=== PATIENT | female | born 1945 ===

== ENCOUNTER 2017-10-30 10:10 | Emergency (ER) | payer MEDICARE ==
[2017-10-30 10:28] VITALS: BP 132/51
--- NOTE | 2017-10-30 10:51 | UC ---
Back Pain HPI - HPI Summary HPI Summary: Pt presents with left rib pain s/p falling 5 days ago. She tells me that 5 days ago she was walking down her steps when it was snowing and slipped on the last step. Landed on her left side and rolled onto her right face/head. No LOC. She got up and went to work as usual. Since that fall she has had left side pain and thinks she may have "broken a rib". She has been taking ibuprofen with significant relief. She does not take any blood thinners, including ASA. Denies dizziness, headache, vision changes, SOB, chest pain, palpitations, abdominal pain, N/V/D/C - History of Current Complaint Chief Complaint: UCTrauma Stated Complaint: S/P FALL LEFT RIB PAIN Time Seen by Provider: 10/30/17 10:25 Hx Obtained From: Patient Onset/Duration: Sudden Onset Timing: Constant Severity Initially: Moderate Severity Currently: Mild Pain Intensity: 1 Pain Scale Used: 0-10 Numeric Character: Sharp, Aching Aggravating Factor(s): Movement, Lifting, Cough Alleviating Factor(s): Rest - Allergies/Home Medications Allergies/Adverse Reactions: Allergies Allergy/AdvReac Type Severity Reaction Status Date / Time Propranolol [From Inderal] Allergy Dizziness Verified 06/02/15 14:50 PMH/Surg Hx/FS Hx/Imm Hx Endocrine History: Diabetes Cardiovascular History: Hypertension - Surgical History Surgical History: Yes Surgery Procedure, Year, and Place: RIGHT mastectomy- 03/16/96 [facility]. BILATERAL KNEE REPLACEMENTS 2003, 2006. C SECTION/APPENDECTOMY. 2012- BILATERAL LENS IMPLANTS- [facility] [place] - Family History Known Family History: Positive: Unknown - Social History Occupation: Employed Part-time Lives: With Family Alcohol Use: None Substance Use Type: None Smoking Status (MU): Former Smoker Type: Cigarettes Have You Smoked in the Last Year: No When Did the Patient Quit Smoking/Using Tobacco: 1992 - Immunization History Most Recent Influenza Vaccination: current for Most Recent Tetanus Shot: 2014 Review of Systems Constitutional: Negative Skin: Negative Eyes: Negative ENT: Negative Respiratory: Negative Cardiovascular: Negative Gastrointestinal: Negative Neurovascular: Negative Musculoskeletal: Other: - Pain left ribs Neurological: Negative Psychological: Negative All Other Systems Reviewed And Are Negative: Yes Physical Exam Triage Information Reviewed: Yes Appearance: Well-Appearing, Obese Vital Signs: Initial Vital Signs Temp 97.8 F 10/30/17 10:23 Pulse 77 10/30/17 10:23 Resp 16 10/30/17 10:23 BP 132/51 10/30/17 10:23 Pulse Ox 97 10/30/17 10:23 Vital Signs Reviewed: Yes Eyes: Positive: Conjunctiva Clear, Other: - EOMI. PERRLA. Area of ecchymosis underneath the right eye - yellow/green in color and appears to be fading.. Negative: Conjunctiva Inflamed, Discharge ENT: Positive: Hearing grossly normal, Pharynx normal, TMs normal. Negative: Pharyngeal erythema, TM bulging, TM dull, TM red Neck: Positive: Supple, No Lymphadenopathy, Other: - FROM. NTTP. Respiratory: Positive: Lungs clear, Normal breath sounds, No respiratory distress, No accessory muscle use Cardiovascular: Positive: RRR, No Murmur, Pulses Normal Abdomen Description: Positive: Nontender, No Organomegaly, Soft. Negative: CVA Tenderness (R), CVA Tenderness (L), Distended, Guarding Bowel Sounds: Positive: Present Musculoskeletal: Positive: Strength Intact, ROM Intact - B/L UEs and LEs, No Edema, Other: - TTP over left 7th-8th rib. No obvious bony deformities. Neurological: Positive: Alert, Other: - A&Ox3. 3 word recall, remote, recent memory, ability to follow 2-step directions, and attention intact. CN II XII grossly intact. [id number] are intact. Gait with normal base. Romberg: maintains balance, no pronator drift. Sensory: sharp and dull touch intact. Reflexes: biceps, triceps, brachioradialis, knee, and ankle +2. Babinski sign negative. Normal speech. No facial drooping. Psychological: Positive: Age Appropriate Behavior Skin: Positive: Other - No other ecchymosis, hematoma, edema, erythema, or wounds appreciated. Back Pain Course/Dx - Course Course Of Treatment: XR IMPRESSION: Fracture of the left seventh rib anteriorly. No pneumothroax. Advised to rest and continue with ibuprofen. Demenstrated taking deep breaths in the office and stressed the importance of not taking shallow short breaths. Out of work for 2 days to rest. - Differential Dx/Diagnosis Differential Diagnosis/HQI/PQRI: Strain, Sprain, Other - Contusion Provider Diagnoses: Left 7th rib fracture nondisplaced Discharge - Discharge Plan Condition: Stable Disposition: HOME Patient Education Materials: Rib Fracture (ED) Forms: *Work Release Referrals: Randolph Miguel MD [Primary Care Provider] - Additional Instructions: If you develop a fever, SOB, chest pain, new or worsening symptoms - please call your PCP or go to the ED. 1) Rest and ice/heat your rib area as needed multiple times a day 2) Continue taking ibuprofen OTC for pain and discomfort.
--- NOTE | 2017-10-30 10:57 | RAD ---
Indication: Left rib pain. 3 views of left ribs demonstrates a fracture of the left seventh rib anterolaterally. Diffuse osteopenia is noted. The remainder of the ribs are limited in evaluation due to body habitus. Single view of the chest demonstrates no pneumothorax. IMPRESSION: Fracture of the left seventh rib anteriorly.
== END 2017-10-30 11:09 | disposition home or self-care (01) ==
LOC: UCCORT 10:10
DX: S22.32XA Fracture of one rib, left side, initial encounter for closed fracture (principal); W00.1XXA Fall from stairs and steps due to ice and snow, initial encounter; Y93.9 Activity, unspecified; Y92.9 Unspecified place or not applicable; Y99.9 Unspecified external cause status; Z87.891 Personal history of nicotine dependence
CPT/HCPCS: 99211; G0463